=== PATIENT | female | born 1935 | race Caucasian/White ===

== ENCOUNTER → 2016-03-26 | Outpatient (CLI) | payer OTHER ==
[~2016-03-26] MED LIST: ALEVE220 MG PO; ALLERGY RELIEF25 M2 PO; AMBIEN 5 MG TABL5 M1 PO; BACTRIM DS TAB1 EACH PO; CALCIUM 500 +1 EAC5 PO; CARDIZEM CD180 MG PO; CRESTOR10 MG PO; GABAPENTIN 100100 MG PO; GLUCOSAMINE &1 EAC1 PO; HYDROCODONE-APA1 TA1 PO; LEVOTHYROXINE 0.15MG PO; PERCOCET 10-321 EACH PO; TRAMADOL 50 MG50 MG PO; ULTRA-LIGHT RO1 EACH MC; VALIUM5 MG PO; XARELTO10 MG PO
== END ==
LOC: MRI 14:40
DX: M47.26 Other spondylosis with radiculopathy, lumbar region (principal); M48.06 Spinal stenosis, lumbar region; M54.5 Low back pain

== ENCOUNTER → 2019-08-16 | Outpatient (CLI) | payer OTHER, MEDICARE | LOC: SJCVC 10:31 | PROVIDERS: ATTEND Internal Medicine Cardiovascular Disease | DX: I48.0 Paroxysmal atrial fibrillation (principal); I10 Essential (primary) hypertension; I08.0 Rheumatic disorders of both mitral and aortic valves; E78.00 Pure hypercholesterolemia, unspecified; E03.9 Hypothyroidism, unspecified; Z79.899 Other long term (current) drug therapy; Z87.891 Personal history of nicotine dependence ==

== ENCOUNTER → 2020-05-15 | Outpatient (CLI) | payer OTHER, MEDICARE | LOC: SJCVC 09:55 | PROVIDERS: ATTEND Internal Medicine Cardiovascular Disease | DX: I48.0 Paroxysmal atrial fibrillation (principal); I10 Essential (primary) hypertension; E78.00 Pure hypercholesterolemia, unspecified; I35.1 Nonrheumatic aortic (valve) insufficiency; Z79.02 Long term (current) use of antithrombotics/antiplatelets; Z79.899 Other long term (current) drug therapy; Z87.891 Personal history of nicotine dependence ==